=== PATIENT | female | born 1955 | race Caucasian/White ===

== ENCOUNTER 2024-10-09 07:56 | Day surgery (SDC) | payer MEDICARE ==
[2024-10-08 10:46] LABS: BASOPHILS # (AUTO) 0.07 K/uL (0.00-0.20); BASOPHILS % (AUTO) 0.7 % (0.0-5.0); EOSINOPHILS % (AUTO) 2.1 % (0.0-8.0); HEMATOCRIT 42.8 % (36-48); IMMATURE GRANULOCYTE ABSOLUTE 0.03 K/uL (0-1); LYMPHOCYTES # (AUTO) 1.8 K/uL (1.0-4.8); LYMPHOCYTES % (AUTO) 19.5 % (21.0-51.0); MEAN CORPUSCULAR HEMOGLOBIN 29.8 pg (27.0-33.0); MEAN CORPUSCULAR HGB CONC 33.2 g/dL (32.0-36.0); MEAN CORPUSCULAR VOLUME 89.7 fL (79-99); MONOCYTES # (AUTO) 0.7 K/uL (0.1-1.0); MONOCYTES % (AUTO) 7.7 % (3.0-13.0); NEUTROPHILS # (AUTO) 6.6 K/uL (1.8-7.7); NEUTROPHILS % (AUTO) 69.7 % (40.0-77.0); PLATELET COUNT (AUTO) 280 K/uL (130-400); RED BLOOD CELL COUNT(AUTO) 4.77 MIL/uL (4.00-5.50); RED CELL DISTRIBUTION WIDTH 12.6 % (11.0-15.5); WHITE BLOOD COUNT (AUTO) 9.4 K/uL (4.8-10.8)
[2024-10-08 10:50] VITALS: BP 100/61; PULSE 91; RESP 17; TEMP 97.2
[2024-10-08 10:53] LABS: CREATININE 1.1 mg/dL (0.5-1.0); POTASSIUM 5.2 mmol/L (3.5-5.1)
[~2024-10-09] VITALS: Ht 170.2 cm; Wt 104.3 kg
[2024-10-09] VITALS (15 sets, daily range): BP systolic 83–98; BP diastolic 48–65; PULSE 60–76; RESP 12–23; TEMP 97.2–97.6
[~2024-10-09 07:56] MED LIST: ATOR40TA71 PO; DILT60CA PO; DRON400T7 PO; HYDR25TA67 PO; LEVO125T11 PO; LISI40TA15 PO; METO-409 PO; RIVA20TA PO; ROPI2TAB53 PO; SPIR50TA5 PO; [UNRECOGNIZED DRUG - OTHER] PO
[2024-10-09] MEDS ORDERED: SUCCINYLCHOLINE CHLORIDE 20 MG/ML 10 ML VIAL ONE (09:05)
[2024-10-09] MEDS ORDERED: proPOFol 10 MG/ML 20ML VIAL IV ONE (09:05)
[2024-10-09] MEDS: 0.9%NACL 1000ML 1,000 ML IV SCH (09:06)
--- NOTE | 2024-10-09 09:15 | NUR ---
CARDIOVERSION: APPROPRIATE TIME -OUT WAS PERFORMED INCLUDING PATIENTS IDENTIFICATION, DATE OF , AND PROCEDURE TO BE PREFORMED AND THERE WERE NO SAFETY ISSUES IDENTIFIED. PATIENT PARTICIPATED ACTIVELY IN THIS AT 09:15 AM. SEDATION STARTED AT 09:[address] ALEXANDER CABA. PT SHOCKED AT 09:18 WITH 200 JOULES. SHOWING NORMAL SINUS RHYTHM. PT TOLERATED PROCEDURE WELL.
--- NOTE | 2024-10-09 09:20 | NUR ---
SKIN: NO BRUISING OR REDNESS NOTED TO ANTERIOR CHEST AND POSTERIOR UPPER BACK.
--- NOTE | 2024-10-09 09:27 | EKG ---
[facility] Test Date: 2024-10-09 Test Time: 08:18:44 Pat Name: KENNETH HEREDIA Department: [facility] Room: [facility] Gender: F Rehabilitation Therapist: [id number] : 1955 Requested By: LAMAR MARTINEZ Order Number: [id number] Reading MD: Amilcar Razo Measurements Intervals Di[place] Rate: 90 P: 41 LA: 200 QRS: 10 QRSD: 96 T: -67 QT: 378 QTc: 462 Interpretive Statements Normal sinus rhythm T wave abnormality, consider inferolateral ischemia No previous ECG available for comparison Electronically Signed On 10-14-2024 07:32:22 CDT by Amilcar Razo Please click the below link to view image of tracing.
--- NOTE | 2024-10-09 09:43 | EKG ---
[facility] Test Date: 2024-10-09 Test Time: 09:24:44 Pat Name: KENNETH HEREDIA Department: [facility] Room: [facility] Gender: F Security Messenger: [phone] : 1955 Requested By: LAMAR MARTINEZ Order Number: [id number] Reading MD: Amilcar Razo Measurements Intervals [place] Rate: 60 P: 60 MD: 278 QRS: -7 QRSD: 96 T: -81 QT: 444 QTc: 444 Interpretive Statements Atrial-paced rhythm with prolonged AV conduction Minimal voltage criteria for LVH, may be normal variant T wave abnormality, consider lateral ischemia Compared to ECG 10/09/2024 08:18:44 Left ventricular hypertrophy now present Sinus rhythm no longer present T-wave abnormality still present Possible ischemia still present Electronically Signed On 10-14-2024 07:32:32 CDT by Amilcar Razo Please click the below link to view image of tracing.
--- NOTE | 2024-10-09 10:05 | NUR ---
SKIN: NO REDNESS/BRUISING NOTED TO ANTERIOR CHEST AND POSTERIOR UPPER BACK.
--- NOTE | 2024-10-30 14:03 | PRN ---
Procedure Note INDICATION FOR PROCEDURE: Persistent atrial fibrillation PROCEDURE: Cardioversion DATE OF PROCEDURE: 10/15/2024 PROCESS COACH: Dr. Jamie Martinez PROCEDURE NOTE: The patient was brought to the day patient area in the fasting state. General anesthesia was provided by the anesthesia service. The patient's existing device was interrogated and reprogrammed. A single synchronized shock of 200 J was delivered resulting in sinus rhythm/atrial pacing. The device was again reprogrammed. The patient tolerated the procedure well and there were no complications. IMPRESSION: Persistent atrial fibrillation status post successful cardioversion PLAN: 1. Continue current medications 2. Follow-up with me in approximately 2 weeks JAMIE MARTINEZ MD Oct 30, 2024 14:03
== END 2024-10-09 10:05 | disposition home or self-care (01) ==
LOC: DAH 07:56
PROVIDERS: ATTEND Internal Medicine Cardiovascular Disease
DX: I48.19 Other persistent atrial fibrillation (principal); I48.4 Atypical atrial flutter; I48.0 Paroxysmal atrial fibrillation; E78.5 Hyperlipidemia, unspecified; G47.33 Obstructive sleep apnea (adult) (pediatric); I48.92 Unspecified atrial flutter; I49.5 Sick sinus syndrome; G25.81 Restless legs syndrome; Z99.89 Dependence on other enabling machines and devices; Z98.890 Other specified postprocedural states; Z79.899 Other long term (current) drug therapy; Z79.01 Long term (current) use of anticoagulants; Z90.89 Acquired absence of other organs; Z95.0 Presence of cardiac pacemaker; Z88.8 Allergy status to other drugs, medicaments and biological substances
CPT/HCPCS: 80048; 85025; 36415; 92960; 93005 ×2; J0330; J2704; A4620; A4215; A4222; A4221; A4663; A4216; A4606; A4223 ×3; J3490